=== PATIENT | male | born 1970 | race Caucasian/White ===

== ENCOUNTER 2023-04-16 08:08 | Outpatient (CLI) | payer OTHER, SELFPAY | END 2023-04-16 08:09 | disposition home or self-care (01) | LOC: NFLDREF 04-29 12:51 | PROVIDERS: Visit Provider Physician Assistant Medical | DX: K46.0 Unspecified abdominal hernia with obstruction, without gangrene (principal); Z13.29 Encounter for screening for other suspected endocrine disorder; Z13.220 Encounter for screening for lipoid disorders; Z12.5 Encounter for screening for malignant neoplasm of prostate; Z13.228 Encounter for screening for other metabolic disorders | CPT/HCPCS: 80053; 80061; 84443; G0103 ==

== ENCOUNTER 2023-11-14 14:20 | Outpatient (CLI) | payer OTHER, SELFPAY | END 2023-11-14 14:21 | disposition home or self-care (01) | LOC: NFLDREF 11-15 09:42 | PROVIDERS: PCP Physician Assistant Medical; Visit Provider Physician Assistant Medical | DX: E78.00 Pure hypercholesterolemia, unspecified (principal); R79.89 Other specified abnormal findings of blood chemistry; K21.00 Gastro-esophageal reflux disease with esophagitis, without bleeding | CPT/HCPCS: 80061; 84450; 84460 ==

== ENCOUNTER 2024-04-21 10:00 | Outpatient (CLI) | payer OTHER, SELFPAY | END 2024-04-21 10:01 | disposition home or self-care (01) | LOC: NFLDREF 04-24 01:25 | PROVIDERS: PCP Physician Assistant Medical; Referring Provider Physician Assistant Medical; Visit Provider Physician Assistant Medical | DX: R79.89 Other specified abnormal findings of blood chemistry (principal); E78.00 Pure hypercholesterolemia, unspecified; R73.9 Hyperglycemia, unspecified; Z12.5 Encounter for screening for malignant neoplasm of prostate | CPT/HCPCS: 80053; 80061; 84443; G0103 ==

== ENCOUNTER 2024-04-28 15:36 | Outpatient (CLI) | payer OTHER, SELFPAY | END 2024-04-28 15:37 | disposition home or self-care (01) | LOC: NFLDREF 04-29 02:51 | PROVIDERS: PCP Physician Assistant Medical; Referring Provider Physician Assistant Medical; Visit Provider Physician Assistant Medical | DX: R79.89 Other specified abnormal findings of blood chemistry (principal); M10.9 Gout, unspecified; I10 Essential (primary) hypertension; E78.00 Pure hypercholesterolemia, unspecified | CPT/HCPCS: 82607; 82746; 83735; 86705; 86706; 86708; 86803; 87340 ==

== ENCOUNTER 2024-05-08 08:37 | Outpatient (CLI) | payer OTHER, SELFPAY ==
--- NOTE | 2024-05-08 09:45 | P.ANES_ITS ---
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
--- NOTE | 2024-05-08 09:45 | W.ANESCHARGE ---
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
== END 2024-05-08 08:38 | disposition home or self-care (01) ==
LOC: OP CLINIC 08:38
PROVIDERS: PCP Physician Assistant Medical; Visit Provider Surgery
DX: K21.9 Gastro-esophageal reflux disease without esophagitis (principal); K22.89 Other specified disease of esophagus
CPT/HCPCS: 00731; 43239; 88305; J2704; J3490

== ENCOUNTER 2024-05-13 09:02 | Outpatient (CLI) | payer OTHER, SELFPAY ==
--- NOTE | 2024-05-13 09:15 | CRLHL7_ITS ---
For Patients: As a result of the Century Cures Act, medical imaging exams and procedure reports are released immediately into your electronic medical record. You may view this report before your referring provider. If you have questions, please contact your health care provider. INDICATION: Elevated liver function tests TECHNIQUE: Ultrasound abdomen limited. Sonographic images of the right upper quadrant were obtained using [place]-scale and color Doppler images. COMPARISON: None FINDINGS: Liver: Diffusely increased in echogenicity with craniocaudal diameter of 19.9 centimeters. No masses. No intrahepatic biliary dilatation. Gallbladder: No stones or sludge. Normal wall thickness. No pericholecystic fluid. Common bile duct: 4 mm. Pancreas: Partially obscured by bowel gas without discrete lesion. Right kidney: Normal in size. Normal echotexture and cortex. No masses, stones, or hydronephrosis. Vasculature: Proximal abdominal aorta and IVC are normal. IMPRESSION: 1. No evidence of cholelithiasis or cholecystitis. 2. Hepatomegaly with moderate hepatic steatosis. Dictated by Tio Hernandez MD @ 05/13/2024 12:52:22 PM (Electronically Signed)
== END 2024-05-13 09:03 | disposition home or self-care (01) ==
PROVIDERS: PCP Physician Assistant Medical; Visit Provider Physician Assistant Medical
DX: R79.89 Other specified abnormal findings of blood chemistry (principal); K76.0 Fatty (change of) liver, not elsewhere classified
CPT/HCPCS: 76705